=== PATIENT | female | born 1990 | race Hispanic/Latino ===

== ENCOUNTER 2022-06-06 10:41 | Emergency (ER) | payer OTHER ==
[~2022-06-06] VITALS: Ht 157.5 cm; Wt 93.0 kg
[2022-06-06] MEDS ORDERED: IBUPROFEN 400 MG TAB PO STA (11:09)
[2022-06-06] MEDS ORDERED: MOTRIN800 MG PO (11:43)
== END 2022-06-06 13:22 | disposition home or self-care (01) ==
LOC: ER 10:57
DX: S83.8X1A Sprain of other specified parts of right knee, initial encounter (principal); W01.0XXA Fall on same level from slipping, tripping and stumbling without subsequent striking against object, initial encounter; Y93.01 Activity, walking, marching and hiking; Y99.0 Civilian activity done for income or pay
CPT/HCPCS: 99283